=== PATIENT | male | born 1945 | race African-American/Black ===

== ENCOUNTER → 2016-04-14 | Outpatient (CLI) | payer MEDICARE ==
[2016-04-15 08:37] LABS: ABSOLUTE EOSINOPHILS # (AUTO) 0.3 10^3/uL (0.0-0.6); ABSOLUTE LYMPHOCYTES (AUTO) 1.5 10^3/uL (0.5-4.7); ABSOLUTE MONOCYTES (AUTO) 0.6 10^3/uL (0.1-1.4); ABSOLUTE NEUT (AUTO) 1.7 10^3/uL (1.7-8.2); BASOPHILS % (AUTO) 0.1 % (0-2); EOSINOPHILS % (AUTO) 7.9 % (0-6); HEMATOCRIT 38.3 % (37.9-51.0); HEMOGLOBIN 12.7 g/dL (13.5-17.0); HGB HCT DIFFERENCE -0.2; LYMPHOCYTES % (AUTO) 36.9 % (13-45); MEAN CORPUSCULAR HEMOGLOBIN 30.5 pg (27.0-33.4); MEAN CORPUSCULAR HGB CONC 33.2 g/dL (32.0-36.0); MEAN CORPUSCULAR VOLUME 92 fl (80-97); MONOCYTES % (AUTO) 14.1 % (3-13); RED BLOOD COUNT 4.17 10^6/uL (4.35-5.55); RED CELL DISTRIBUTION WIDTH 15.5 % (11.5-14.0)
[2016-04-15 09:07] LABS: ALANINE AMINOTRANSFERASE 55 U/L (21-72); ALBUMIN 4.6 g/dL (3.5-5.0); ALKALINE PHOSPHATASE 56 U/L (38-126); ANION GAP 16 (5-19); ASPARTATE AMINO TRANSFERASE 41 U/L (17-59); BILIRUBIN,TOTAL 0.6 mg/dL (0.2-1.3); BLOOD UREA NITROGEN 28 mg/dL (7-20); CALCIUM 10.7 mg/dL (8.4-10.2); CARBON DIOXIDE 22 mmol/L (22-30); CHLORIDE 109 mmol/L (98-107); CHOLESTEROL 125.88 mg/dL (0-200); CREATININE RESULT 1.56 mg/dL (0.52-1.25); Direct HDL 25 mg/dL (>40); GLUCOSE 86 mg/dL (75-110); POTASSIUM 4.1 mmol/L (3.6-5.0); SODIUM 146.6 mmol/L (137-145); TOTAL PROTEIN 7.8 g/dL (6.3-8.2); TRIGLYCERIDES 118 mg/dL (<150)
[2016-04-15 09:27] LABS: DIRECT LDL 67 mg/dL (<100)
== END ==
LOC: LAB 09:57
PROVIDERS: ATTEND Internal Medicine
DX: E11.9 Type 2 diabetes mellitus without complications (principal); I25.10 Atherosclerotic heart disease of native coronary artery without angina pectoris; I10 Essential (primary) hypertension; E78.5 Hyperlipidemia, unspecified
CPT/HCPCS: 36415; 80053; 80061; 83036; 85025

== ENCOUNTER 2016-11-03 08:35 | Emergency (ER) | payer OTHER, MEDICARE ==
[2016-11-03 09:04] LABS: APPEARANCE,URINE SLIGHTLY-CLOUDY; BILIRUBIN,URINE NEGATIVE (NEGATIVE); GLUCOSE, URINE NEGATIVE (NEGATIVE); KETONES,URINE NEGATIVE (NEGATIVE); LEUKOCYTE ESTERASE,URINE LARGE (NEGATIVE); NITRITE,URINE NEGATIVE (NEGATIVE); PROTEIN,URINE NEGATIVE (NEGATIVE); URINE SPECIFIC GRAVITY 1.008; UROBILINOGEN,URINE NEGATIVE mg/dL (<2.0)
--- NOTE | 2016-11-03 09:45 | RADIOLOGY REPORT (SQ) ---
EXAM DESCRIPTION: CHEST SINGLE VIEW COMPLETED DATE/TIME: 11/03/2016 9:38 am REASON FOR STUDY: sob COMPARISON: None. EXAM PARAMETERS: NUMBER OF VIEWS: One view. TECHNIQUE: Single frontal radiographic view of the chest acquired. RADIATION DOSE: NA LIMITATIONS: None. FINDINGS: LUNGS AND PLEURA: No opacities, masses or pneumothorax. No pleural effusion. MEDIASTINUM AND HILAR STRUCTURES: No masses. Contour normal. HEART AND VASCULAR STRUCTURES: No cardiomegaly. Old sternotomy and CABG BONES: Diffuse degenerative changes thoracic spine HARDWARE: None in the chest. OTHER: No other significant finding. IMPRESSION: NO ACUTE RADIOGRAPHIC FINDING IN THE CHEST. TECHNICAL DOCUMENTATION: JOB ID: [id number]
[2016-11-03 09:46] LABS: ABSOLUTE EOSINOPHILS # (AUTO) 0.1 10^3/uL (0.0-0.6); ABSOLUTE LYMPHOCYTES (AUTO) 0.7 10^3/uL (0.5-4.7); ABSOLUTE MONOCYTES (AUTO) 0.3 10^3/uL (0.1-1.4); ABSOLUTE NEUT (AUTO) 1.7 10^3/uL (1.7-8.2); BASOPHILS % (AUTO) 0.5 % (0-2); EOSINOPHILS % (AUTO) 4.8 % (0-6); HEMATOCRIT 31.9 % (37.9-51.0); HEMOGLOBIN 11.1 g/dL (13.5-17.0); HGB HCT DIFFERENCE 1.4; LYMPHOCYTES % (AUTO) 23.2 % (13-45); MEAN CORPUSCULAR HEMOGLOBIN 32.5 pg (27.0-33.4); MEAN CORPUSCULAR HGB CONC 34.9 g/dL (32.0-36.0); MEAN CORPUSCULAR VOLUME 93 fl (80-97); MONOCYTES % (AUTO) 10.5 % (3-13); RED BLOOD COUNT 3.42 10^6/uL (4.35-5.55); RED CELL DISTRIBUTION WIDTH 14.7 % (11.5-14.0); WHITE BLOOD COUNT 2.8 10^3/uL (4.0-10.5)
[2016-11-03 10:03] LABS: ALANINE AMINOTRANSFERASE 63 U/L (21-72); ALBUMIN 4.3 g/dL (3.5-5.0); ALKALINE PHOSPHATASE 49 U/L (38-126); ANION GAP 12 (5-19); ASPARTATE AMINO TRANSFERASE 42 U/L (17-59); BILIRUBIN,DIRECT 0.3 mg/dL (0.0-0.4); BILIRUBIN,TOTAL 0.7 mg/dL (0.2-1.3); BLOOD UREA NITROGEN 30 mg/dL (7-20); CALCIUM 10.4 mg/dL (8.4-10.2); CARBON DIOXIDE 20 mmol/L (22-30); CHLORIDE 105 mmol/L (98-107); CREATINE KINASE 277 U/L (55-170); CREATININE RESULT 1.44 mg/dL (0.52-1.25); GLUCOSE 210 mg/dL (75-110); POTASSIUM 4.4 mmol/L (3.6-5.0); SODIUM 136.8 mmol/L (137-145); TOTAL PROTEIN 7.6 g/dL (6.3-8.2)
[2016-11-03 10:12] LABS: CREATINE KINASE MB 3.14 ng/mL (<4.55)
[2016-11-03 10:18] LABS: TROPONIN I 0.074 ng/mL
[2016-11-03] MEDS ORDERED: CIPROFLOXACIN HCL 500 MG TABLET PO ONE (10:18)
--- NOTE | 2016-11-03 10:19 | ER Document Report ---
ED General - General Chief Complaint: Shortness Of Breath Stated Complaint: SHORT OF BREATH Time Seen by Provider: 11/03/16 08:54 Mode of Arrival: Ambulatory Information source: Patient Notes: 71-year-old male history of stent presents with complaints of shortness of breath. Patient denies any actual chest pain states that shortness of breath has been ongoing for 2 days TRAVEL OUTSIDE OF THE [place] IN LAST 30 DAYS: No - HPI Onset: Yesterday Onset/Duration: Sudden Quality of pain: No pain Severity: Mild Pain Level: Denies Associated symptoms: Shortness of breath Exacerbated by: Denies Relieved by: Denies Similar symptoms previously: Yes - Patient notes previous anxiety episodes similar to this Recently seen / treated by doctor: No - Related Data Allergies/Adverse Reactions: No Known Allergies Allergy (Verified 11/03/16 09:12) Past Medical History - Social History Smoking Status: Never Smoker Cigarette use (# per day): No Chew tobacco use (# tins/day): No Smoking Education Provided: No Family History: Reviewed & Not Pertinent Patient has suicidal ideation: No Patient has homicidal ideation: No Renal/ Medical History: Denies: Hx Peritoneal Dialysis Review of Systems - Review of Systems Notes: REVIEW OF SYSTEMS: CONSTITUTIONAL : Denies fever, chills, or sweats. Denies recent illness. EENT: Denies eye, ear, throat, or mouth pain or symptoms. Denies nasal or sinus congestion or discharge. Denies throat, tongue, or mouth swelling or difficulty swallowing. CARDIOVASCULAR: Denies chest pain. Denies palpitations or racing or irregular heart beat. Denies ankle edema. RESPIRATORY: Admits to shortness of breath GASTROINTESTINAL: Denies abdominal pain or distention. Denies nausea, vomiting , or diarrhea. Denies blood in vomitus, stools, or per rectum. Denies black, tarry stools. Denies constipation. GENITOURINARY: Denies difficulty urinating, painful urination, burning, frequency, blood in urine, or discharge. MUSCULOSKELETAL: Denies back or neck pain or stiffness. Denies joint pain or swelling. SKIN: Denies rash, lesions or sores. HEMATOLOGIC : Denies easy bruising or bleeding. LYMPHATIC: Denies swollen, enlarged glands. NEUROLOGICAL: Denies confusion or altered mental status. Denies passing out or loss of consciousness. Denies dizziness or lightheadedness. Denies headache. Denies weakness or paralysis or loss of use of either side. Denies problems with gait or speech. Denies sensory loss, numbness, or tingling. Denies seizures. PSYCHIATRIC: Denies anxiety or stress. Denies depression, suicidal ideation, or homicidal ideation. ALL OTHER SYSTEMS REVIEWED AND NEGATIVE. Dictation was performed using [employer] voice recognition software PHYSICAL EXAMINATION: GENERAL: Well-appearing, well-nourished and in no acute distress. HEAD: Atraumatic, normocephalic. EYES: Pupils equal round and reactive to light, extraocular movements intact, sclera anicteric, conjunctiva are normal. ENT: Nares patent, oropharynx clear without exudates. Moist mucous membranes. NECK: Normal range of motion, supple without lymphadenopathy LUNGS: Breath sounds clear to auscultation bilaterally and equal. No wheezes rales or rhonchi. HEART: Regular rate and rhythm without murmurs ABDOMEN: Soft, nontender, nondistended abdomen. No guarding, no rebound. No masses appreciated. Musculoskeletal: Normal range of motion, no pitting or edema. No cyanosis. NEUROLOGICAL: Cranial nerves grossly intact. Normal speech, normal gait. Normal sensory, motor exams PSYCH: Normal mood, normal affect. SKIN: Warm, Dry, normal turgor, no rashes or lesions noted. Physical Exam - Vital signs Vitals: Temp Pulse Resp BP Pulse Ox 97.6 F 76 22 H 170/83 H 97 11/03/16 08:36 11/03/16 08:36 11/03/16 08:36 11/03/16 08:36 11/03/16 08:36 Course - Re-evaluation Re-evalutation: 11/03/16 12:58 Physical examination noted absolutely no abnormality, patient's lab work does note mild renal insufficiency as well as slightly elevated troponin. This may be related to the creatinine however a second set of cardiac enzymes have been ordered. I do not expect this to be cardiac in nature but the patient does have cardiac history. His shortness of breath has been ongoing now for 2 days and elevated troponins would be expected at this point 11/03/16 15:02 Second set of cardiac enzymes note no change, therefore I do believe this is secondary to the patient's kidney function. He will be discharged home at this time to follow with his primary care physician and aesthetics instructor for reevaluation. Otherwise patient is in no distress denies any complaints After performing a Medical Screening Examination, I estimate there is LOW risk for RUPTURED ESOPHAGUS, PNEUMOTHORAX, PULMONARY EMBOLISM, ACUTE CORONARY SYNDROME, OR THORACIC AORTIC DISSECTION, thus I consider the discharge disposition reasonable. I have reevaluated this patient multiple times and no significant life threatening changes are noted. The patient and I have discussed the diagnosis and risks, and we agree with discharging home with close follow-up. We also discussed returning to the Emergency Department immediately if new or worsening symptoms occur. We have discussed the symptoms which are most concerning (e.g., bloody sputum, worsening pain or shortness of breath) that necessitate immediate return. - Vital Signs Vital signs: Temp Pulse Resp BP Pulse Ox 97.9 F 76 10 L 147/92 H 100 11/03/16 12:18 11/03/16 08:36 11/03/16 12:01 11/03/16 12:01 11/03/16 12:01 - Laboratory Result Diagrams: 11/03/16 09:25 11/03/16 09:25 Laboratory results interpreted by me: 11/03/16 11/03/16 11/03/16 08:42 09:25 09:25 WBC 2.8 L RBC 3.42 L Hgb 11.1 L Hct 31.9 L RDW 14.7 H Sodium 136.8 L Carbon Dioxide 20 L BUN 30 H Creatinine 1.44 H Est GFR ( Amer) 58 L Est GFR (Non-Af Amer) 48 L Glucose 210 H Calcium 10.4 H Creatine Kinase 277 H Ur Leukocyte Esterase LARGE H Urine Ascorbic Acid 40 H - Diagnostic Test Radiology reviewed: Image reviewed, Reports reviewed - EKG Interpretation by Me EKG shows normal: Sinus rhythm, [place], Intervals, QRS Complexes Discharge - Discharge Clinical Impression: SOB (shortness of breath) HTN (hypertension) Qualifiers: Hypertension type: essential hypertension Qualified Code(s): I10 - Essential ( primary) hypertension CKD (chronic kidney disease) Qualifiers: Chronic kidney disease stage: stage 1 Qualified Code(s): N18.1 - Chronic kidney disease, stage 1 Condition: Stable Disposition: HOME, SELF-CARE Instructions: Dyspnea, Nonspecific ([facility]) Referrals: FLOR STARR MD [Primary Care Provider] - Follow up tomorrow
[2016-11-03] MEDS ORDERED: ASPIRIN 325 MG TABLET PO ONE (12:58)
--- NOTE | 2016-11-03 13:24 | EKG REPORT ---
SEVERITY:- BORDERLINE ECG - SINUS RHYTHM LEFT AXIS DEVIATION BORDERLINE ST ELEVATION, ANTERIOR LEADS : Confirmed by: Gudelia De La Rosa 03-Nov-2016 13:23:44
[2016-11-03 15:04] VITALS: BP 119/75
== END 2016-11-03 15:25 | disposition home or self-care (01) ==
LOC: ER 08:35
DX: R06.02 Shortness of breath (principal); R74.8 Abnormal levels of other serum enzymes; I12.9 Hypertensive chronic kidney disease with stage 1 through stage 4 chronic kidney disease, or unspecified chronic kidney disease; N18.1 Chronic kidney disease, stage 1
CPT/HCPCS: 36415; 71010; 80053; 81001; 82550; 82553; 83880; 84484; 85025; 87040; 93005; 93010; 99285

== ENCOUNTER 2017-02-24 20:11 | Emergency (ER) | payer OTHER, MEDICARE ==
[2017-02-24 21:55] LABS: APPEARANCE,URINE SLIGHTLY-CLOUDY; BILIRUBIN,URINE NEGATIVE (NEGATIVE); GLUCOSE, URINE NEGATIVE (NEGATIVE); KETONES,URINE NEGATIVE (NEGATIVE); LEUKOCYTE ESTERASE,URINE SMALL (NEGATIVE); NITRITE,URINE NEGATIVE (NEGATIVE); PROTEIN,URINE NEGATIVE (NEGATIVE); URINE SPECIFIC GRAVITY 1.011; UROBILINOGEN,URINE NEGATIVE mg/dL (<2.0)
[2017-02-24 21:59] LABS: RBC,URINE 30-50 /HPF; WHITE BLOOD CELL CASTS, URINE 0-1 /LPF
[2017-02-24 22:30] LABS: ABSOLUTE EOSINOPHILS # (AUTO) 0.2 10^3/uL (0.0-0.6); ABSOLUTE LYMPHOCYTES (AUTO) 1.4 10^3/uL (0.5-4.7); ABSOLUTE MONOCYTES (AUTO) 0.7 10^3/uL (0.1-1.4); ABSOLUTE NEUT (AUTO) 3.2 10^3/uL (1.7-8.2); BASOPHILS % (AUTO) 0.4 % (0-2); EOSINOPHILS % (AUTO) 4.4 % (0-6); HEMOGLOBIN 12.2 g/dL (13.5-17.0); HGB HCT DIFFERENCE 0.6; LYMPHOCYTES % (AUTO) 25.2 % (13-45); MEAN CORPUSCULAR HGB CONC 33.8 g/dL (32.0-36.0); MEAN CORPUSCULAR VOLUME 92 fl (80-97); MONOCYTES % (AUTO) 12.6 % (3-13); RED BLOOD COUNT 3.93 10^6/uL (4.35-5.55); RED CELL DISTRIBUTION WIDTH 14.8 % (11.5-14.0); SEGMENTED NEUTROPHILS % (AUTO) 57.4 % (42-78); WHITE BLOOD COUNT 5.6 10^3/uL (4.0-10.5)
[2017-02-24 22:46] LABS: ALANINE AMINOTRANSFERASE 89 U/L (21-72); ALBUMIN 4.6 g/dL (3.5-5.0); ALKALINE PHOSPHATASE 58 U/L (38-126); ANION GAP 17 (5-19); ASPARTATE AMINO TRANSFERASE 45 U/L (17-59); BILIRUBIN,DIRECT 0.3 mg/dL (0.0-0.4); BILIRUBIN,TOTAL 0.5 mg/dL (0.2-1.3); BLOOD UREA NITROGEN 51 mg/dL (7-20); CALCIUM 10.4 mg/dL (8.4-10.2); CARBON DIOXIDE 19 mmol/L (22-30); CHLORIDE 108 mmol/L (98-107); GLUCOSE 145 mg/dL (75-110); POTASSIUM 4.3 mmol/L (3.6-5.0); SODIUM 143.8 mmol/L (137-145); TOTAL PROTEIN 7.8 g/dL (6.3-8.2)
--- NOTE | 2017-02-24 23:52 | RADIOLOGY REPORT (SQ) ---
EXAM DESCRIPTION: CT LTD RENAL STONE PROTOCOL ON COMPLETED DATE/TIME: 02/24/2017 11:35 pm REASON FOR STUDY: right flank pain COMPARISON: None. TECHNIQUE: CT scan of the abdomen and pelvis performed without intravenous or oral contrast. Images reviewed with lung, soft tissue, and bone windows. Reconstructed coronal and sagittal MPR images revi ewed. All images stored on PACS. All CT scanners at this facility use dose modulation, iterative reconstruction, and/or weight based d osing when appropriate to reduce radiation dose to as low as reasonably achievable (ALARA). [facility]: Dose Right [facility]: CareDose [facility]: Dose Right [facility]: Teradose 4D [facility]: SocialDeck RADIATION DOSE: 17.5mGy. LIMITATIONS: None. FINDINGS: LOWER CHEST: Old sternotomy for CABG. No nodules or infiltrates. NON-CONTRASTED LIVER, SPLEEN, ADRENALS: Evaluation limited by lack of IV contrast. No identified sign ificant masses. PANCREAS: No masses. No peripancreatic inflammatory changes. GALLBLADDER: No identified stones by CT criteria. No inflammatory changes to suggest cholecystitis. RIGHT KIDNEY AND URETER: No suspicious masses. Assessment limited by lack of IV contrast. Arterial vascular calcifications. No right collecting system stones. No hydronephrosis or hydroureter. LEFT KIDNEY AND URETER: No suspicious masses. Assessment limited by lack of IV contrast. Arterial v ascular calcifications. No left collecting system stones. No hydronephrosis or hydroureter. AORTA AND RETROPERITONEUM: Infrarenal abdominal aorta measures 3.6 cm in diameter. No retroperitoneal masses or adenopathy. BOWEL AND PERITONEAL CAVITY: No obvious masses or inflammatory changes. No free fluid. Scattered col onic diverticuli. No CT signs of acute diverticulitis. APPENDIX: Normal. PELVIS, BLADDER, AND ABDOMINAL WALL:No abnormal masses. No free fluid. Bladder normal. BONES: Old L4 lumbar laminectomy. OTHER: No other significant finding. IMPRESSION: No CT signs of obstructive urinary calculi. No hydronephrosis or hydroureter. Ectatic infrarenal abdominal aorta, 3.6 cm in diameter Scattered colonic diverticuli without CT signs of acute diverticulitis. COMMENT: Quality ID # [id number]: Final reports with documentation of one or more dose reduction techniques (e.g., Automated exposure control, adjustment of the mA and/or kV according to patient size, use of iterative reconstruction technique) TECHNICAL DOCUMENTATION: JOB ID: [id number] [employer]- All Rights Reserved
--- NOTE | 2017-02-25 02:05 | ER Document Report ---
ED General - General Chief Complaint: Urinary Problem Stated Complaint: BLOOD IN URINE Time Seen by Provider: 02/24/17 23:04 Mode of Arrival: Ambulatory Information source: Patient Notes: This is a 71-year-old man with a history of diabetes, chronic kidney disease, gout who presents to the emergency room with hematuria for 1 day. Patient does state that he had right flank pain yesterday. He states that the flank pain is gone but now has burning on urination. TRAVEL OUTSIDE OF THE [place] IN LAST 30 DAYS: No - HPI Onset: Yesterday Onset/Duration: Gradual Quality of pain: No pain Severity: None Pain Level: Denies Associated symptoms: denies: Chills, Fever, Shortness of breath Exacerbated by: Denies Relieved by: Denies Similar symptoms previously: No Recently seen / treated by doctor: No - Related Data Allergies/Adverse Reactions: No Known Allergies Allergy (Verified 11/03/16 09:12) Past Medical History - General Information source: Patient - Social History Smoking Status: Unknown if Ever Smoked Cigarette use (# per day): No Chew tobacco use (# tins/day): No Frequency of alcohol use: None Drug Abuse: None Lives with: Alone Family History: Reviewed & Not Pertinent Patient has suicidal ideation: No Patient has homicidal ideation: No - Past Medical History Cardiac Medical History: Reports: Hx Heart Attack - Pt had bypass surgery about 25 years ago 5 vessels. Pt also had 2 stints, Hx Hypercholesterolemia - Takes medication for high cholesterol, Hx Hypertension - Takes medication currently Renal/ Medical History: Denies: Hx Peritoneal Dialysis GI Medical History: Reports: Hx Gastroesophageal Reflux Disease - takes gas-ex regular for reflux Past Surgical History: Reports: Hx Open Heart Surgery - 25 years agoComment Only : Hx Cardiac Surgery - 2 stints last less than 2 years ago Review of Systems - Review of Systems Constitutional: denies: Chills, Fever EENT: No symptoms reported Cardiovascular: No symptoms reported Respiratory: No symptoms reported Gastrointestinal: No symptoms reported Genitourinary: See HPI Male Genitourinary: See HPI Musculoskeletal: No symptoms reported Skin: No symptoms reported Hematologic/Lymphatic: No symptoms reported Neurological/Psychological: No symptoms reported Physical Exam - Vital signs Vitals: Temp Pulse Resp BP Pulse Ox 97.5 F 66 20 163/81 H 100 02/24/17 20:21 02/24/17 20:21 02/24/17 20:21 02/24/17 20:21 02/24/17 20:21 Notes: Physical exam: GENERAL: 71-year-old man, alert and oriented 3, no acute distress HEAD: Atraumatic, normocephalic. EYES: Pupils equal round and reactive to light, extraocular movements intact, sclera anicteric, conjunctiva are normal. ENT: TMs normal, nares patent, oropharynx clear without exudates. Moist mucous membranes. NECK: Normal range of motion, supple without obvious mass or JVD. LUNGS: Breath sounds clear to auscultation bilaterally and equal. No wheezes rales or rhonchi. HEART: Regular rate and rhythm without murmurs, rubs or gallops. ABDOMEN: Soft, normoactive bowel sounds. No tenderness to palpation. No guarding, no rebound. No masses appreciated. Rectal exam: Prostate nontender, no masses, feels soft. Penis: Urethra is intact, no lesions, no palpable masses on the shaft EXTREMITIES: Normal range of motion, no pitting or edema. No clubbing or cyanosis. NEUROLOGICAL: Cranial nerves II through XII grossly intact. Normal speech, moving all extremities. PSYCH: Normal mood, normal affect. SKIN: Warm, Dry, normal turgor, no rashes or lesions noted. Course - Vital Signs Vital signs: Temp Pulse Resp BP Pulse Ox 97.9 F 56 L 16 158/76 H 99 02/25/17 02:17 02/25/17 02:17 02/25/17 02:17 02/25/17 02:17 02/25/17 02:17 - Laboratory Result Diagrams: 02/24/17 22:00 02/24/17 22:00 Laboratory results interpreted by me: 02/24/17 02/24/17 02/24/17 20:37 22:00 22:00 RBC 3.93 L Hgb 12.2 L Hct 36.0 L RDW 14.8 H Chloride 108 H Carbon Dioxide 19 L BUN 51 H Creatinine 1.70 H Est GFR ( Amer) 48 L Est GFR (Non-Af Amer) 40 L Glucose 145 H Calcium 10.4 H ALT 89 H Urine Blood LARGE H Ur Leukocyte Esterase SMALL H Urine Ascorbic Acid 40 H - Diagnostic Test Radiology reviewed: Image reviewed, Reports reviewed - CT of the abdomen shows no kidney stones, obstructive uropathy Discharge - Discharge Clinical Impression: Hematuria, UTI Condition: Stable Disposition: HOME, SELF-CARE Additional Instructions: Recommendations: Want you to take the antibiotics as prescribed. We will get a treat this like a UTI. But I think it is important that you follow-up with a urologist because you may need a cystoscope which is a direct scope through the penis of the bladder. You can follow-up with a urologist at the [facility]. Continue your current medicines. Bring a copy of today's labs and CT report with you when you go to see the urologist. Prescriptions: Ciprofloxacin HCl [Cipro 500 mg Tablet] 500 mg PO BID #20 tablet
[2017-02-25 02:18] VITALS: BP 158/76
== END 2017-02-25 02:18 | disposition home or self-care (01) ==
LOC: ER 20:11
DX: N39.0 Urinary tract infection, site not specified (principal); R31.9 Hematuria, unspecified; E78.00 Pure hypercholesterolemia, unspecified; E11.22 Type 2 diabetes mellitus with diabetic chronic kidney disease; I12.9 Hypertensive chronic kidney disease with stage 1 through stage 4 chronic kidney disease, or unspecified chronic kidney disease; N18.9 Chronic kidney disease, unspecified; I25.2 Old myocardial infarction; Z95.1 Presence of aortocoronary bypass graft
CPT/HCPCS: 36415; 76380; 80053; 81001; 85025; 99284

== ENCOUNTER → 2018-06-21 | Outpatient (CLI) | payer OTHER, MEDICARE ==
[2018-06-21 08:49] LABS: ALANINE AMINOTRANSFERASE 115 U/L (21-72); ALBUMIN 4.3 g/dL (3.5-5.0); ALKALINE PHOSPHATASE 53 U/L (38-126); ASPARTATE AMINO TRANSFERASE 69 U/L (17-59); BILIRUBIN,DIRECT 0.3 mg/dL (0.0-0.4); BILIRUBIN,TOTAL 0.7 mg/dL (0.2-1.3); CHOLESTEROL 105.63 mg/dL (0-200); TOTAL PROTEIN 7.5 g/dL (6.3-8.2); TRIGLYCERIDES 174 mg/dL (<150)
[2018-06-21 09:00] LABS: DIRECT LDL 48 mg/dL (<100)
[2018-06-21 09:02] LABS: VLDL CHOLESTEROL 34.8 mg/dL (10-31)
== END ==
LOC: OD 07:40
PROVIDERS: ATTEND Specialist
DX: I25.10 Atherosclerotic heart disease of native coronary artery without angina pectoris (principal); Z95.1 Presence of aortocoronary bypass graft; Z98.61 Coronary angioplasty status; E78.49 Other hyperlipidemia; I10 Essential (primary) hypertension; I34.0 Nonrheumatic mitral (valve) insufficiency; D50.8 Other iron deficiency anemias; E08.9 Diabetes mellitus due to underlying condition without complications; Z79.899 Other long term (current) drug therapy
CPT/HCPCS: 36415; 80061; 80076; 83036

== ENCOUNTER → 2018-07-30 | Outpatient (CLI) | payer MEDICARE ==
[2018-07-30 09:01] LABS: ALANINE AMINOTRANSFERASE 107 U/L (21-72); ALBUMIN 4.3 g/dL (3.5-5.0); ALKALINE PHOSPHATASE 64 U/L (38-126); ASPARTATE AMINO TRANSFERASE 61 U/L (17-59); BILIRUBIN,DIRECT 0.3 mg/dL (0.0-0.4); BILIRUBIN,TOTAL 0.7 mg/dL (0.2-1.3); TOTAL PROTEIN 7.4 g/dL (6.3-8.2)
== END ==
LOC: OD 07:58
PROVIDERS: ATTEND Internal Medicine
DX: R94.5 Abnormal results of liver function studies (principal)
CPT/HCPCS: 36415; 80076

== ENCOUNTER → 2018-08-03 | Outpatient (CLI) | payer MEDICARE ==
--- NOTE | 2018-08-03 10:52 | RADIOLOGY REPORT (SQ) ---
EXAM DESCRIPTION: U/S ABDOMEN LIMITED W/O DOP COMPLETED DATE/TIME: 08/03/2018 10:26 am REASON FOR STUDY: ABN LFT (R94.5), BACK (K75.81), FATTY LIVER (K76.0) R94.5 ABNORMAL RESULTS OF ROMAN ER FUNCTION STUDIES COMPARISON: CT abdomen pelvis 02/24/2017 TECHNIQUE: Dynamic and static grayscale images acquired of the abdomen and recorded on PACS. Additio nal selected color Doppler and spectral images recorded. LIMITATIONS: Large patient, midline bowel gas FINDINGS: PANCREAS: Midline pancreas unremarkable LIVER: Normal size, diffuse increased echogenicity from fatty infiltration or diffuse hepatocellular disease. No focal masses. No biliary ductal dilatation LIVER VASCULATURE: Normal directional flow of the main portal vein and hepatic veins. GALLBLADDER: Multiple stones. No gallbladder wall thickening or pericholecystic fluid. ULTRASOUND-DETECTED GUERRERO'S SIGN: Negative. INTRAHEPATIC DUCTS AND COMMON DUCT: CBD and intrahepatic ducts normal caliber. No filling defects. INFERIOR VENA CAVA: Normal flow. AORTA: Infrarenal abdominal aorta measures 3.6 cm in greatest AP diameter, similar compared to 017 CT abdomen pelvis RIGHT KIDNEY: Normal size. Normal echogenicity. No solid or suspicious masses. No hydronephrosis. No calcifications. PERITONEAL AND RIGHT PLEURAL SPACE: No ascites or effusions. OTHER: No other significant findings. IMPRESSION: Gallstones Stable infrarenal abdominal aorta 3.6 cm AP diameter Echogenic liver from fatty infiltration or diffuse hepatocellular disease COMMENT: AAA Size: 3.6 cm follow-up Recommendation 3.5-3.9 cm Every 12 months ultrasound follow -up *Based upon the Society for Vascular Surgery Guidelines: J Vasc Surg. 2009 Dec;50(4 Suppl):S2-49 *For aortas of maximum diameter of 2.6-2.9 cm meeting the criteria for AAA (?1.5 x proximal normal se gment) TECHNICAL DOCUMENTATION: JOB ID: [id number]- All Rights Reserved Reading location - IP/workstation name: [email or web address]
== END ==
LOC: RAD 09:41
PROVIDERS: ATTEND Internal Medicine
DX: R94.5 Abnormal results of liver function studies (principal); K75.81 Nonalcoholic steatohepatitis (NASH)
CPT/HCPCS: 76705

== ENCOUNTER → 2018-11-01 | Outpatient (CLI) | payer MEDICARE ==
[2018-11-01 12:09] LABS: ALBUMIN 4.5 g/dL (3.5-5.0); ALKALINE PHOSPHATASE 53 U/L (38-126); ASPARTATE AMINO TRANSFERASE 48 U/L (17-59); BILIRUBIN,DIRECT 0.3 mg/dL (0.0-0.4); BILIRUBIN,TOTAL 0.5 mg/dL (0.2-1.3); TOTAL PROTEIN 7.6 g/dL (6.3-8.2)
== END ==
LOC: OD 10:40
PROVIDERS: ATTEND Internal Medicine Gastroenterology
DX: R94.5 Abnormal results of liver function studies (principal)
CPT/HCPCS: 36415; 80076

== ENCOUNTER → 2018-11-08 | Outpatient (CLI) | payer MEDICARE ==
[2018-11-10 11:36] LABS: ANTICHROMATIN AB 1.9 AI (0.0-0.9); CENTROMERE B AB <0.2 AI (0.0-0.9); JO-1 ANTIBODY (ANACOMP) <0.2 AI (0.0-0.9); SJOGREN'S ANTI-SS-B AB 0.2 AI (0.0-0.9); SJOGREN'S SS-A ANTIBODY <0.2 AI (0.0-0.9)
[2018-11-10 16:26] LABS: DNA DOUBLE STRAND ANTIBODY ANA 18 IU/mL (0-9)
== END ==
LOC: OD 16:55
PROVIDERS: ATTEND Internal Medicine Gastroenterology
DX: R94.5 Abnormal results of liver function studies (principal)
CPT/HCPCS: 36415; 86038; 86225; 86235

== ENCOUNTER 2019-02-11 18:03 | Emergency (ER) | payer MEDICARE, OTHER ==
[2019-02-11] MEDS ORDERED: ASPIRIN 81 MG TABLET, CHEWABLE PO ONE (18:31)
--- NOTE | 2019-02-11 18:32 | ER Document Report ---
ED Medical Screen (RME) - General Chief Complaint: Shortness Of Breath Stated Complaint: SHORTNESS OF BREATH Time Seen by Provider: 02/11/19 18:24 Primary Care Provider: NENO MODI MD [Primary Care Provider] - Follow up as needed Mode of Arrival: Ambulatory Information source: Patient Notes: This [id number]-year-old male with history of coronary bypass back surgery presents emergency department with reports that his heart was really going fast. He reports this happened in the past he is jumped in the shower taking easy and it slowed down. This time he was too scared to take a shower so he jumped in the truck and came here. Reports his heart rate is just now slowed down. Reports he gets very short of breath with some chest pain. Denies fever vomiting reports some diarrhea. Reports he usually takes 81 mg aspirin a day but has not taken it today. Also complains of left flank pain. Reports he has trouble urinating but his doctor gave him something for that. Respiratory rate even unlabored I have greeted and performed a rapid initial assessment of this patient. A comprehensive ED assessment and evaluation of the patient, analysis of test r esults and completion of the medical decision making process will be conducted by additional ED providers. Dictation of this chart was performed using voice recognition software; therefore, there may be some unintended grammatical errors. TRAVEL OUTSIDE OF THE [place] IN LAST 30 DAYS: No - Related Data Allergies/Adverse Reactions: No Known Allergies Allergy (Verified 11/03/16 09:12) Past Medical History - Social History Frequency of alcohol use: None Drug Abuse: None - Past Medical History Cardiac Medical History: Reports: Hx Heart Attack - Pt had bypass surgery about 25 years ago 5 vessels. Pt also had 2 stints, Hx Hypercholesterolemia - Takes medication for high cholesterol, Hx Hypertension - Takes medication currently Renal/ Medical History: Denies: Hx Peritoneal Dialysis GI Medical History: Reports: Hx Gastroesophageal Reflux Disease - takes gas-ex regular for reflux Past Surgical History: Reports: Hx Open Heart Surgery - 25 years agoComment Only: Hx Cardiac Surgery - 2 stints last less than 2 years ago Physical Exam - Vital signs Vitals: Temp Pulse BP Pulse Ox 97.4 F 121 H 174/78 H 100 02/11/19 18:10 02/11/19 18:10 02/11/19 18:10 02/11/19 18:10 Course - Vital Signs Vital signs: Temp Pulse Resp BP Pulse Ox 97.4 F 88 174/78 H 100 02/11/19 18:10 02/11/19 18:22 02/11/19 18:10 02/11/19 18:22 Doctor's Discharge - Discharge Referrals: NENO MODI MD [Primary Care Provider] - Follow up as needed
--- NOTE | 2019-02-11 19:04 | RADIOLOGY REPORT (SQ) ---
EXAM DESCRIPTION: CHEST 2 VIEWS COMPLETED DATE/TIME: 02/11/2019 6:47 pm REASON FOR STUDY: SOB COMPARISON: 04/25/2008 EXAM PARAMETERS: NUMBER OF VIEWS: two views TECHNIQUE: Digital Frontal and Lateral radiographic views of the chest acquired. RADIATION DOSE: NA LIMITATIONS: none FINDINGS: LUNGS AND PLEURA: No infiltrate or effusion. There is 11 mm nodule in the mid right lung. This is not present on the earlier study. MEDIASTINUM AND HILAR STRUCTURES: No masses or contour abnormalities. HEART AND VASCULAR STRUCTURES: Heart normal size. No evidence for failure. BONES: No acute findings. HARDWARE: None in the chest. OTHER: No other significant finding. IMPRESSION: 11 mm right pulmonary nodule. Recommend CT. TECHNICAL DOCUMENTATION: JOB ID: [id number] [employer]- All Rights Reserved Reading location - IP/workstation name: [email or web address]
[2019-02-11 19:19] LABS: ABSOLUTE EOSINOPHILS # (AUTO) 0.3 10^3/uL (0.0-0.6); ABSOLUTE MONOCYTES (AUTO) 0.7 10^3/uL (0.1-1.4); HEMOGLOBIN 11.9 g/dL (13.5-17.0); TOTAL CELLS COUNTED % (AUTO) 100 %
[2019-02-11 19:27] LABS: ABSOLUTE LYMPHOCYTES (AUTO) 2.1 10^3/uL (0.5-4.7); ABSOLUTE NEUT (AUTO) 2.1 10^3/uL (1.7-8.2); BASOPHILS % (AUTO) 0.3 % (0-2); EOSINOPHILS % (AUTO) 5.9 % (0-6); HEMATOCRIT 34.6 % (37.9-51.0); LYMPHOCYTES % (AUTO) 40.1 % (13-45); MEAN CORPUSCULAR HEMOGLOBIN 31.6 pg (27.0-33.4); MEAN CORPUSCULAR HGB CONC 34.2 g/dL (32.0-36.0); MEAN CORPUSCULAR VOLUME 92 fl (80-97); MONOCYTES % (AUTO) 13.1 % (3-13); PLATELET COUNT 173 10^3/uL (150-450); RED BLOOD COUNT 3.75 10^6/uL (4.35-5.55); RED CELL DISTRIBUTION WIDTH 14.6 % (11.5-14.0); SEGMENTED NEUTROPHILS % (AUTO) 40.6 % (42-78); WHITE BLOOD COUNT 5.3 10^3/uL (4.0-10.5)
[2019-02-11 19:29] LABS: APPEARANCE,URINE SLIGHTLY-CLOUDY; BILIRUBIN,URINE NEGATIVE (NEGATIVE); COLOR,URINE YELLOW; GLUCOSE, URINE NEGATIVE (NEGATIVE); KETONES,URINE NEGATIVE (NEGATIVE); LEUKOCYTE ESTERASE,URINE LARGE (NEGATIVE); NITRITE,URINE POSITIVE (NEGATIVE); PROTEIN,URINE 30 mg/dL (NEGATIVE); URINE SPECIFIC GRAVITY 1.016; UROBILINOGEN,URINE NEGATIVE mg/dL (<2.0)
[2019-02-11 19:40] LABS: ALBUMIN 4.6 g/dL (3.5-5.0); ALKALINE PHOSPHATASE 56 U/L (38-126); ANION GAP 13 (5-19); ASPARTATE AMINO TRANSFERASE 68 U/L (17-59); BILIRUBIN,DIRECT 0.1 mg/dL (0.0-0.4); BILIRUBIN,TOTAL 0.6 mg/dL (0.2-1.3); BLOOD UREA NITROGEN 25 mg/dL (7-20); CALCIUM 11.1 mg/dL (8.4-10.2); CARBON DIOXIDE 24 mmol/L (22-30); CHLORIDE 107 mmol/L (98-107); GLUCOSE 153 mg/dL (75-110); POTASSIUM 3.8 mmol/L (3.6-5.0); TOTAL PROTEIN 8.3 g/dL (6.3-8.2)
--- NOTE | 2019-02-11 22:28 | ER Document Report ---
ED Respiratory Problem - General Chief Complaint: Shortness Of Breath Stated Complaint: SHORTNESS OF BREATH Time Seen by Provider: 02/11/19 18:24 Primary Care Provider: GRADY MARIA MD [ACTIVE STAFF] - Follow up as needed Mode of Arrival: Ambulatory Information source: Patient Notes: This [id number]-year-old male with history of coronary bypass back surgery presents emergency department with reports that his heart was really going fast. He reports this happened in the past he is jumped in the shower taking easy and it slowed down. This time he was too scared to take a shower so he jumped in the truck and came here. Reports his heart rate is just now slowed down. Reports he gets very short of breath with some chest pain. Denies fever vomiting reports some diarrhea. Reports he usually takes 81 mg aspirin a day but has not taken it today. Also complains of left flank pain. Reports he has trouble urinating but his doctor gave him something for that. Respiratory rate even unlabored TRAVEL OUTSIDE OF THE [place] IN LAST 30 DAYS: No - Related Data Allergies/Adverse Reactions: No Known Allergies Allergy (Verified 11/03/16 09:12) Past Medical History - General Information source: Patient - Social History Smoking Status: Never Smoker Frequency of alcohol use: None Drug Abuse: None Family History: Reviewed & Not Pertinent Patient has suicidal ideation: No Patient has homicidal ideation: No - Past Medical History Cardiac Medical History: Reports: Hx Heart Attack - Pt had bypass surgery about 25 years ago 5 vessels. Pt also had 2 stints, Hx Hypercholesterolemia - Takes medication for high cholesterol, Hx Hypertension - Takes medication currently Renal/ Medical History: Denies: Hx Peritoneal Dialysis GI Medical History: Reports: Hx Gastroesophageal Reflux Disease - takes gas-ex regular for reflux Past Surgical History: Reports: Hx Open Heart Surgery - 25 years agoComment Only: Hx Cardiac Surgery - 2 stints last less than 2 years ago Review of Systems - Review of Systems -: Yes All other systems reviewed and negative - Unless mentioned in HPI. Physical Exam - Vital signs Vitals: Temp Pulse BP Pulse Ox 97.4 F 121 H 174/78 H 100 02/11/19 18:10 02/11/19 18:10 02/11/19 18:10 02/11/19 18:10 - Notes Notes: PHYSICAL EXAMINATION: GENERAL: Well-appearing, well-nourished and in no acute distress. HEAD: Atraumatic, normocephalic. EYES: Pupils equal round and reactive to light, extraocular movements intact, sclera anicteric, conjunctiva are normal. ENT: Nares patent, oropharynx clear without exudates. Moist mucous membranes. NECK: Normal range of motion, supple without lymphadenopathy LUNGS: Breath sounds clear to auscultation bilaterally and equal. No wheezes rales or rhonchi. HEART: Regular rate and rhythm without murmurs ABDOMEN: Soft, nontender, nondistended abdomen. No guarding, no rebound. No masses appreciated. Musculoskeletal: Normal range of motion, no pitting or edema. No cyanosis. NEUROLOGICAL: Cranial nerves grossly intact. Normal speech, normal gait. Normal sensory, motor exams PSYCH: Normal mood, normal affect. SKIN: Warm, Dry, normal turgor, no rashes or lesions noted. Course - Re-evaluation Re-evalutation: 02/11/19 23:55 Dr. Hewitt contacted. He agrees to see patient outpatient in his office at noon. Laboratory 02/11/19 02/11/19 02/11/19 18:50 18:50 18:50 WBC 5.3 RBC 3.75 L Hgb 11.9 L Hct 34.6 L MCV 92 MCH 31.6 MCHC 34.2 RDW 14.6 H Plt Count 173 Lymph % (Auto) 40.1 Dixon % (Auto) 13.1 H Eos % (Auto) 5.9 Baso % (Auto) 0.3 Absolute Neuts (auto) 2.1 Absolute Lymphs (auto) 2.1 Absolute Monos (auto) 0.7 Absolute Eos (auto) 0.3 Absolute Basos (auto) 0.0 Seg Neutrophils % 40.6 L Sodium 143.7 Potassium 3.8 Chloride 107 Carbon Dioxide 24 Anion Gap 13 BUN 25 H Creatinine 1.39 H Est GFR ( Amer) > 60 Est GFR (MDRD) Non-Af 50 L Glucose 153 H POC Glucose Calcium 11.1 H Total Bilirubin 0.6 Direct Bilirubin 0.1 Neonat Total Bilirubin Not Reportable Neonat Direct Bilirubin Not Reportable Neonat Indirect Bili Not Reportable AST 68 H ALT 102 Alkaline Phosphatase 56 Troponin I 0.020 Total Protein 8.3 H Albumin 4.6 Urine Color Urine Appearance Urine pH Ur Specific [place] Urine Protein Urine Glucose (UA) Urine Ketones Urine Blood Urine Nitrite Urine Bilirubin Urine Urobilinogen Ur Leukocyte Esterase Urine WBC (Auto) Urine RBC (Auto) U Hyaline Cast (Auto) Urine Bacteria (Auto) Urine WBC Clumps Urine Mucus (Auto) Urine Ascorbic Acid 02/11/19 02/11/19 02/12/19 18:50 21:34 01:20 WBC RBC Hgb Hct MCV MCH MCHC RDW Plt Count Lymph % (Auto) Dixon % (Auto) Eos % (Auto) Baso % (Auto) Absolute Neuts (auto) Absolute Lymphs (auto) Absolute Monos (auto) Absolute Eos (auto) Absolute Basos (auto) Seg Neutrophils % Sodium Potassium Chloride Carbon Dioxide Anion Gap BUN Creatinine Est GFR ( Amer) Est GFR (MDRD) Non-Af Glucose POC Glucose Calcium Total Bilirubin Direct Bilirubin Neonat Total Bilirubin Neonat Direct Bilirubin Neonat Indirect Bili AST ALT Alkaline Phosphatase Troponin I 0.075 0.092 Total Protein Albumin Urine Color YELLOW Urine Appearance SLIGHTLY-CLOUDY Urine pH 5.0 Ur Specific [place] 1.016 Urine Protein 30 H Urine Glucose (UA) NEGATIVE Urine Ketones NEGATIVE Urine Blood NEGATIVE Urine Nitrite POSITIVE H Urine Bilirubin NEGATIVE Urine Urobilinogen NEGATIVE Ur Leukocyte Esterase LARGE H Urine WBC (Auto) 111 Urine RBC (Auto) 4 U Hyaline Cast (Auto) 3 Urine Bacteria (Auto) 3+ Urine WBC Clumps FEW Urine Mucus (Auto) RARE Urine Ascorbic Acid NEGATIVE 02/12/19 01:39 WBC RBC Hgb Hct MCV MCH MCHC RDW Plt Count Lymph % (Auto) Dixon % (Auto) Eos % (Auto) Baso % (Auto) Absolute Neuts (auto) Absolute Lymphs (auto) Absolute Monos (auto) Absolute Eos (auto) Absolute Basos (auto) Seg Neutrophils % Sodium Potassium Chloride Carbon Dioxide Anion Gap BUN Creatinine Est GFR ( Amer) Est GFR (MDRD) Non-Af Glucose POC Glucose 127 H Calcium Total Bilirubin Direct Bilirubin Neonat Total Bilirubin Neonat Direct Bilirubin Neonat Indirect Bili AST ALT Alkaline Phosphatase Troponin I Total Protein Albumin Urine Color Urine Appearance Urine pH Ur Specific [place] Urine Protein Urine Glucose (UA) Urine Ketones Urine Blood Urine Nitrite Urine Bilirubin Urine Urobilinogen Ur Leukocyte Esterase Urine WBC (Auto) Urine RBC (Auto) U Hyaline Cast (Auto) Urine Bacteria (Auto) Urine WBC Clumps Urine Mucus (Auto) Urine Ascorbic Acid Chest X-Ray 02/11/19 18:30 IMPRESSION: 11 mm right pulmonary nodule. Recommend CT. Chest CT 02/11/19 22:22 IMPRESSION: 14.0 mm solid pulmonary nodule. Consider a non-contrast Chest CT at 3 months, a PET/CT, or tissue sampling. These guidelines do not apply to immunocompromised patients and patients with cancer. Follow up in patients with significant comorbidities as clinically warranted. For lung cancer screening, adhere to Lung-RADS guidelines. Reference: Radiology. 2017; 284(1):228-43. Work-up was discussed with patient. Patient has had a chest x-ray that showed an incidental finding of an 11 mm right pulmonary nodule. He was sent for CT which actually shows that the pulmonary nodule is about 14 cm. Patient had no history of this previously. Patient understands the need for close follow-up with this. Patient did have cardiac work-up done today including 3 troponins. He did have a slight bump in his troponin but it was never a positive troponin. Multiple EKGs were also done, repeat EKG did show ST elevations in leads II and III without reciprocal changes which is why cardiology was consulted. Cardiology requested patient to be discharged home to follow-up outpatient. Of note patient has not had any active chest pain while in the emergency department today. - Vital Signs Vital signs: Temp Pulse Resp BP Pulse Ox 97.4 F 73 17 124/82 99 02/12/19 02:56 02/12/19 02:56 02/12/19 02:56 02/12/19 02:56 02/12/19 02:56 - Laboratory Result Diagrams: 02/11/19 18:50 02/11/19 18:50 Laboratory results interpreted by me: 02/11/19 02/11/19 02/11/19 18:50 18:50 18:50 RBC 3.75 L Hgb 11.9 L Hct 34.6 L RDW 14.6 H Dixon % (Auto) 13.1 H Seg Neutrophils % 40.6 L BUN 25 H Creatinine 1.39 H Est GFR (MDRD) Non-Af 50 L Glucose 153 H POC Glucose Calcium 11.1 H AST 68 H Total Protein 8.3 H Urine Protein 30 H Urine Nitrite POSITIVE H Ur Leukocyte Esterase LARGE H 02/12/19 01:39 RBC Hgb Hct RDW Dixon % (Auto) Seg Neutrophils % BUN Creatinine Est GFR (MDRD) Non-Af Glucose POC Glucose 127 H Calcium AST Total Protein Urine Protein Urine Nitrite Ur Leukocyte Esterase Discharge - Discharge Clinical Impression: Lung nodule, Chest pressure, Elevated troponin Urinary tract infection Qualifiers: Urinary tract infection type: site unspecified Hematuria presence: without hematuria Qualified Code(s): N39.0 - Urinary tract infection, site not specified Condition: Stable Disposition: HOME, SELF-CARE Instructions: Urinary Tract Infection ([facility]) Additional Instructions: You had elevated cardiac markers here in the emergency department today. I called and spoke with your breeding technician Dr. Maria who would like to see you in his office today at noon. In the meantime please return to the emergency department immediately if you have return of chest pain, shortness of breath, nausea, vomiting or any other symptoms. Please proceed to Dr. Robertson office at noon today. His cell phone number is [phone] if you have any problems. Incidentally we also found a urinary tract infection on your exam today. Urine culture is pending. Please start taking the antibiotics as prescribed. Complete the entire course even if your symptoms have resolved. Please follow- up with your primary care provider in 3 to 5 days regarding your urinary tract infection. Please be sure to follow-up with your primary care provider, Dr. Foy regarding the pulmonary nodule that we found on the CT report as this will need further evaluation and monitoring. Prescriptions: Ciprofloxacin HCl [Cipro 500 mg Tablet] 500 mg PO BID #14 tablet Referrals: GRADY MARIA MD [ACTIVE STAFF] - Follow up as needed
--- NOTE | 2019-02-11 23:18 | RADIOLOGY REPORT (SQ) ---
CT CHEST WITHOUT IV CONTRAST EXAM DATE: 02/11/2019 10:22 PM DIRECTOR OF COMPENSATION HISTORY: Pulmonary nodule. COMPARISON: Radiographs from earlier the same day. TECHNIQUE: CT scan of the chest without IV contrast. This exam was performed according to our departmental dose-optimization program, which includes automated exposure control, adjustment of the mA and/or kV according to patient size and/or use of iterative reconstruction technique. FINDINGS: There is a 1.4 cm lobulated nodule in the right middle lobe (series 4 image 35). No consolidation, pleural effusion, or pneumothorax. There is mild atelectasis and scarring in the lower lobes. The left thyroid lobe is enlarged. The heart size is normal without pericardial effusion. No mediastinal or axillary adenopathy. Limited evaluation for hilar adenopathy without IV contrast. Prior median sternotomy. No acute bony findings are identified. The visualized upper abdomen demonstrates tiny calcifications in the right kidney. IMPRESSION: 14.0 mm solid pulmonary nodule. Consider a non-contrast Chest CT at 3 months, a PET/CT, or tissue sampling. These guidelines do not apply to immunocompromised patients and patients with cancer. Follow up in patients with significant comorbidities as clinically warranted. For lung cancer screening, adhere to Lung-RADS guidelines. Reference: Radiology. 2017; 284(1):228-43.
[2019-02-12] MEDS ORDERED: SIMVASTATIN 40 MG TABLET PO ONE (00:23)
[2019-02-12] MEDS ORDERED: METFORMIN HCL 500 MG TABLET PO ONE (00:23)
[2019-02-12] MEDS ORDERED: AMLODIPINE BESYLATE 10 MG TABLET PO ONE (00:23)
[2019-02-12 02:57] VITALS: BP 124/82
--- NOTE | 2019-02-12 07:40 | EKG REPORT ---
SEVERITY:- ABNORMAL ECG - SINUS RHYTHM PROBABLE LEFT ATRIAL ABNORMALITY LEFT AXIS DEVIATION NONSPECIFIC T ABNORMALITIES, LATERAL LEADS : Confirmed by: Blake Jewell MD 12-Feb-2019 07:40:15
--- NOTE | 2019-02-12 07:55 | EKG REPORT ---
SEVERITY:- ABNORMAL ECG - SINUS RHYTHM ST ELEVATION, CONSIDER ACUTE ANTERIOR INJURY : Confirmed by: Blake Jewell MD 12-Feb-2019 07:54:37
--- NOTE | 2019-02-12 07:57 | EKG REPORT ---
SEVERITY:- ABNORMAL ECG - SINUS RHYTHM VENTRICULAR PREMATURE COMPLEX PROBABLE LEFT VENTRICULAR HYPERTROPHY NONSPECIFIC LATERAL ST-T CHANGES : Confirmed by: Blake Jewell MD 12-Feb-2019 07:56:09
--- NOTE | 2019-02-13 13:39 | EKG REPORT ---
SEVERITY:- ABNORMAL ECG - SINUS RHYTHM BORDERLINE LEFT AXIS DEVIATION BORDERLINE ST ELEVATION, ANTERIOR LEADS : Confirmed by: Blake Jewell MD 13-Feb-2019 13:38:23
== END 2019-02-12 02:57 | disposition home or self-care (01) ==
LOC: ER 18:03
DX: N39.0 Urinary tract infection, site not specified (principal); R91.1 Solitary pulmonary nodule; R07.9 Chest pain, unspecified; R10.9 Unspecified abdominal pain; R79.89 Other specified abnormal findings of blood chemistry; Z95.1 Presence of aortocoronary bypass graft; Z79.82 Long term (current) use of aspirin; I25.2 Old myocardial infarction
CPT/HCPCS: 93005 ×2; 99285; 36415; 82962; 85025; 80053; 81001; 84484; 71046; 71250; 93010 ×2; A9270 ×4; 87086; 87088

== ENCOUNTER → 2019-03-05 | Outpatient (CLI) | payer MEDICARE ==
--- NOTE | 2019-03-06 10:57 | RADIOLOGY REPORT (SQ) ---
EXAM DESCRIPTION: PET CT SKULL/THIGH COMPLETED DATE/TIME: 03/05/2019 8:18 pm REASON FOR STUDY: LUNG NODULE (R91.1) R91.1 SOLITARY PULMONARY NODULE COMPARISON: CT of the chest without contrast from 02/11/2019. RADIONUCLIDE AND DOSE: 9.63 mCi F18 FDG The route of agent administration: Intravenous FASTING BLOOD SUGAR: 146 mg/dl CONTRAST TYPE AND DOSE: No CT contrast given. TECHNIQUE: Blood glucose level was verified. Above dose of FDG was injected intravenously. 2-D seg mented attenuation correction images were obtained from the base of the skull to the midthighs. Nonc ontrast CT images were obtained for attenuation correction and fusion with emission images. CT image s were performed without oral or intravenous contrast and are not sensitive for parenchymal lesions. A series of overlapping emission PET images were obtained. Images reviewed and manipulated at [facility] work station by the radiologist. Images stored on PACS. LIMITATIONS: None. FINDINGS: HEAD AND NECK: No areas of abnormal metabolic activity in the soft tissues of the head and neck. CHEST: The 14 x 11 mm perifissural nodule in the right middle lobe (see image 92 of series 3) demonst rates no abnormal FDG uptake. The less than 10 mm solid peripheral and subpleural nodules scattered throughout the right upper and lower lobes including the nodules on image 90, 95, 103 and 106 are sta ble in size from 02/11/2019 and are outside the spatial resolution of PET. No areas of abnormal meta bolic activity are identified in the chest. ABDOMEN AND PELVIS: The liver demonstrates heterogeneous non focal FDG uptake with an average SUV of 3.5. There is expected physiologic activity throughout the gastrointestinal and genitourinary tracts . No areas of abnormal metabolic activity are identified in the abdomen and pelvis. PROXIMAL LOWER EXTREMITIES: No areas of abnormal metabolic activity in the soft tissues of the lower extremities. BONES: No areas of abnormal metabolic activity in the imaged axial and appendicular skeleton. ADDITIONAL CT FINDINGS: Enlarged heterogeneous thyroid gland consistent with a goiter. There are pro minent mediastinal lymph nodes that measure up to 11 mm in short axis diameter and demonstrate no abn ormal FDG uptake on PET. The patient is status post median sternotomy for CABG. The heart is enlarg ed and there is severe atherosclerotic calcification of the coronary arteries. There is no pericardi al effusion. There is no CT evidence of hepatic steatosis. The spleen is normal in size. There is no abnormality of the gallbladder or pancreas. The calcification anterior to the infrahepatic IVC on image 133 of series 3 is nonspecific. There is no hydronephrosis, nephrolithiasis, hydroureter or u reterolithiasis. There is fusiform aneurysmal dilatation of the infrarenal abdominal aorta with an A P diameter of 3.6 cm. There is no retroperitoneal adenopathy, hemorrhage or mass. The urinary bladd er is nondistended. The prostate gland is enlarged and it measures up to 5.1 cm in transverse diamet er. There is colonic diverticulosis without diverticulitis ; there is no bowel obstruction, bowel wa ll thickening or pericolonic/ perienteric inflammation. There is no mesenteric adenopathy or mesente cuca/ omental stranding. OTHER: No other findings. IMPRESSION: 1. The 14 x 11 mm perifissural nodule in the right middle lobe (image 92 of series 3) de monstrates no abnormal FDG uptake. Other less than 10 mm solid peripheral and subpleural nodules sca ttered throughout the right upper and lower lobes are outside the spatial resolution of PET. Continu ed CT follow-up of the nodules is recommended. 2. Fusiform aneurysmal dilatation of the infrarenal abdominal aorta with an AP diameter of 3.6 cm (u nchanged from 02/24/2017). TECHNICAL DOCUMENTATION: JOB ID: [id number] [employer]- All Rights Reserved Reading location - IP/workstation name: [email or web address]
== END ==
LOC: RAD 08:16
PROVIDERS: ATTEND Internal Medicine
DX: R91.1 Solitary pulmonary nodule (principal)
CPT/HCPCS: 78815; A9552

== ENCOUNTER → 2019-05-13 | Outpatient (CLI) | payer MEDICARE ==
--- NOTE | 2019-05-13 12:59 | RADIOLOGY REPORT (SQ) ---
EXAM DESCRIPTION: CT CHEST WITHOUT COMPLETED DATE/TIME: 05/13/2019 9:15 am REASON FOR STUDY: SOLITARY PULMONARY NODULE R91.1 SOLITARY PULMONARY NODULE COMPARISON: Chest CT 02/11/2019 PET-CT 03/05/2019 TECHNIQUE: CT scan performed of the chest without intravenous contrast. Images reviewed with lung, soft tissue and bone windows. Reconstructed coronal and sagittal MPR images reviewed. All images st ored on PACS. All CT scanners at this facility use dose modulation, iterative reconstruction, and/or weight based d osing when appropriate to reduce radiation dose to as low as reasonably achievable (ALARA). [facility]: Dose Right [facility]: CareDose [facility]: Dose Right [facility]: Teradose 4D [facility]: [employer] RADIATION DOSE: CT Rad equipment meets quality standard of care and radiation dose reduction techniq ues were employed. CTDIvol: 17.4 mGy. DLP: 772 mGy-cm. mGy. LIMITATIONS: No technical limitations. FINDINGS: LUNGS AND PLEURA: Stable 1.4 cm nodule in the right middle lobe. Stable 3 mm nodule in th e right lower lobe. There is mild chronic pulmonary fibrosis in the right base medially. HILAR AND MEDIASTINAL STRUCTURES: There are some nonspecific mediastinal nodes. HEART AND VASCULAR STRUCTURES: No aneurysm. No pericardial effusion. Prior CABG. UPPER ABDOMEN: No significant findings. Limited exam. THYROID AND OTHER SOFT TISSUES: Once again the thyroid gland is enlarged and extends into the upper m ediastinum. BONES: No significant finding. HARDWARE: Sternotomy wires. OTHER: No other significant findings. IMPRESSION: Stable pulmonary nodules. Mild chronic pulmonary fibrosis. Goiter. COMMENT: [place]NER CRITERIA FOR FOLLOW-UP OF PULMONARY NODULES Incidentally detected new nodules in persons 35 or older. HIGH RISK: History of smoking or other known risk factors. >8 mm single solid nodule: LOW and HIGH RISK: consider CT, PET/CT or biopsy at 3 mo. TECHNICAL DOCUMENTATION: JOB ID: [id number] Quality ID # [id number]: Final reports with documentation of one or more dose reduction techniques (e.g., Au tomated exposure control, adjustment of the mA and/or kV according to patient size, use of iterative reconstruction technique) 2010 [employer]- All Rights Reserved Reading location - IP/workstation name: [email or web address]
== END ==
LOC: RAD 09:10
PROVIDERS: ATTEND Internal Medicine
DX: R91.1 Solitary pulmonary nodule (principal)
CPT/HCPCS: 71250

== ENCOUNTER → 2019-09-18 | Outpatient (CLI) | payer MEDICARE ==
[2019-09-18 10:13] LABS: ABSOLUTE EOSINOPHILS # (AUTO) 0.2 10^3/uL (0.0-0.6); ABSOLUTE LYMPHOCYTES (AUTO) 1.3 10^3/uL (0.5-4.7); ABSOLUTE MONOCYTES (AUTO) 0.4 10^3/uL (0.1-1.4); ABSOLUTE NEUT (AUTO) 1.9 10^3/uL (1.7-8.2); BASOPHILS % (AUTO) 0.3 % (0-2); HEMATOCRIT 31.4 % (37.9-51.0); HEMOGLOBIN 10.2 g/dL (13.5-17.0); LYMPHOCYTES % (AUTO) 33.8 % (13-45); MEAN CORPUSCULAR HEMOGLOBIN 27.5 pg (27.0-33.4); MEAN CORPUSCULAR HGB CONC 32.6 g/dL (32.0-36.0); MEAN CORPUSCULAR VOLUME 84 fl (80-97); MONOCYTES % (AUTO) 11.6 % (3-13); PLATELET COUNT 212 10^3/uL (150-450); RED BLOOD COUNT 3.72 10^6/uL (4.35-5.55); RED CELL DISTRIBUTION WIDTH 16.5 % (11.5-14.0); SEGMENTED NEUTROPHILS % (AUTO) 49.3 % (42-78); TOTAL CELLS COUNTED % (AUTO) 100 %; WHITE BLOOD COUNT 3.8 10^3/uL (4.0-10.5)
[2019-09-18 10:33] LABS: ALBUMIN 4.4 g/dL (3.5-5.0); ALKALINE PHOSPHATASE 60 U/L (38-126); ANION GAP 9 (5-19); ASPARTATE AMINO TRANSFERASE 53 U/L (17-59); BILIRUBIN,TOTAL 0.6 mg/dL (0.2-1.3); BLOOD UREA NITROGEN 18 mg/dL (7-20); CALCIUM 11.2 mg/dL (8.4-10.2); CARBON DIOXIDE 24 mmol/L (22-30); CHLORIDE 108 mmol/L (98-107); CHOLESTEROL 129.14 mg/dL (0-200); GLUCOSE 122 mg/dL (75-110); POTASSIUM 4.1 mmol/L (3.6-5.0); TOTAL PROTEIN 7.8 g/dL (6.3-8.2); TRIGLYCERIDES 203 mg/dL (<150)
[2019-09-18 10:44] LABS: DIRECT LDL 62 mg/dL (<100)
[2019-09-18 10:48] LABS: VLDL CHOLESTEROL 40.6 mg/dL (10-31)
--- NOTE | 2019-09-18 13:33 | RADIOLOGY REPORT (SQ) ---
EXAM DESCRIPTION: U/S ABDOMEN LTD W/DOPPLER IMAGES COMPLETED DATE/TIME: 09/18/2019 11:00 am REASON FOR STUDY: CALCULUS OF GALLBLADDER W/O CHOLECYSTITIS W/O OBSTRUCTION (K80.20) K80.20 CALCULU S OF GALLBLADDER W/O CHOLECYSTITIS W/O OBSTRUC E11.9 TYPE 2 DIABETES MELLITUS WITHOUT COMPLICATIONS COMPARISON: 08/03/2018 TECHNIQUE: Dynamic and static grayscale images acquired of the abdomen and recorded on PACS. Additio nal selected color Doppler and spectral images recorded. LIMITATIONS: None. FINDINGS: PANCREAS: No masses. Visualized pancreatic duct normal caliber. LIVER: Fatty liver. The liver measures 18.0 cm in length. Mild hepatomegaly. LIVER VASCULATURE: Normal directional flow of the main portal vein and hepatic veins. GALLBLADDER: Multiple gallstones were identified on the prior examination. These findings are not v isualized on the current study. The gallbladder does appeared to be somewhat contracted. No pericho lecystic fluid. ULTRASOUND-DETECTED GUERRERO'S SIGN: Negative. INTRAHEPATIC DUCTS AND COMMON DUCT: CBD measures 3.9 mm in diameter, normal. The intrahepatic ducts normal caliber. No filling defects. INFERIOR VENA CAVA: Normal flow. AORTA: As on the previous examination, and infrarenal abdominal aortic aneurysm. On the prior exami nation it measured 3.6 cm in greatest AP diameter, compared to 4.0 cm on the current study. RIGHT KIDNEY: The right kidney measures 10.7 cm in length, normal size. Normal echotexture. No darlene id or suspicious masses. No hydronephrosis. No calcifications. PERITONEAL AND RIGHT PLEURAL SPACE: No ascites or effusions. OTHER: No other significant findings. IMPRESSION: 1. The gallbladder is contracted in appearance. On the prior study, multiple gallstone s were identified. These findings are not present on the prior study. Correlation suggested and rep eat ultrasound with the patient NPO. 2. Fatty liver, unchanged finding. 3. As on the prior examination, infrarenal abdominal aortic aneurysm. It measures approximately 4.0 cm in AP diameter on the current study, compared to 3.6 cm on the prior study. TECHNICAL DOCUMENTATION: JOB ID: [id number] 2010 [facility]- All Rights Reserved Reading location - IP/workstation name: [email or web address]
== END ==
LOC: RAD 09:12
PROVIDERS: ATTEND Internal Medicine
DX: K80.20 Calculus of gallbladder without cholecystitis without obstruction (principal); E11.9 Type 2 diabetes mellitus without complications; I10 Essential (primary) hypertension; I25.10 Atherosclerotic heart disease of native coronary artery without angina pectoris; E78.5 Hyperlipidemia, unspecified
CPT/HCPCS: 36415; 76705; 80053; 80061; 83036; 85025; 93976

== ENCOUNTER → 2019-09-19 | Outpatient (CLI) | payer MEDICARE | LOC: OD 16:22 | PROVIDERS: ATTEND Internal Medicine | DX: E83.52 Hypercalcemia (principal) | CPT/HCPCS: 36415; 83970 ==

== ENCOUNTER → 2020-04-03 | Outpatient (CLI) | payer MEDICARE ==
[2020-04-03 12:03] LABS: ABSOLUTE EOSINOPHILS # (AUTO) 0.3 10^3/uL (0.0-0.6); ABSOLUTE LYMPHOCYTES (AUTO) 1.8 10^3/uL (0.5-4.7); ABSOLUTE MONOCYTES (AUTO) 0.6 10^3/uL (0.1-1.4); ABSOLUTE NEUT (AUTO) 2.6 10^3/uL (1.7-8.2); BASOPHILS % (AUTO) 0.3 % (0-2); EOSINOPHILS % (AUTO) 5.2 % (0-6); HEMATOCRIT 26.9 % (37.9-51.0); HEMOGLOBIN 8.8 g/dL (13.5-17.0); LYMPHOCYTES % (AUTO) 34.4 % (13-45); MEAN CORPUSCULAR HEMOGLOBIN 29.6 pg (27.0-33.4); MEAN CORPUSCULAR HGB CONC 32.8 g/dL (32.0-36.0); MEAN CORPUSCULAR VOLUME 90 fl (80-97); MONOCYTES % (AUTO) 11.4 % (3-13); PLATELET COUNT 235 10^3/uL (150-450); RED BLOOD COUNT 2.98 10^6/uL (4.35-5.55); RED CELL DISTRIBUTION WIDTH 28.9 % (11.5-14.0); SEGMENTED NEUTROPHILS % (AUTO) 48.7 % (42-78); TOTAL CELLS COUNTED % (AUTO) 100 %; WHITE BLOOD COUNT 5.3 10^3/uL (4.0-10.5)
[2020-04-03 12:23] LABS: ALBUMIN 4.1 g/dL (3.5-5.0); ALKALINE PHOSPHATASE 67 U/L (38-126); ANION GAP 10 (5-19); ASPARTATE AMINO TRANSFERASE 51 U/L (17-59); BILIRUBIN,DIRECT 0.2 mg/dL (0.0-0.4); BILIRUBIN,TOTAL 0.6 mg/dL (0.2-1.3); BLOOD UREA NITROGEN 18 mg/dL (7-20); CALCIUM 10.9 mg/dL (8.4-10.2); CARBON DIOXIDE 23 mmol/L (22-30); CHLORIDE 106 mmol/L (98-107); GLUCOSE 124 mg/dL (75-110); POTASSIUM 4.1 mmol/L (3.6-5.0); TOTAL PROTEIN 7.2 g/dL (6.3-8.2)
[2020-04-03 12:25] LABS: C-REACTIVE PROTEIN < 5.0 mg/L (<10.0)
[2020-04-03 12:28] LABS: ANISOCYTOSIS 4+
[2020-04-03 12:29] LABS: OVALOCYTES SLIGHT; POIKILOCYTOSIS 1+; POLYCHROMASIA SLIGHT; TEAR DROP CELLS SLIGHT
[2020-04-03 12:30] LABS: PLATELET COMMENT ADEQUATE
[2020-04-03 12:37] LABS: ERYTHROCYTE SEDIMENTATION RATE 41 mm/hr (0-20)
== END ==
LOC: WC 10:53
PROVIDERS: ATTEND Nurse Practitioner Family
DX: T81.31XA Disruption of external operation (surgical) wound, not elsewhere classified, initial encounter (principal); E11.621 Type 2 diabetes mellitus with foot ulcer
CPT/HCPCS: 36415; 80053; 83036; 85025; 85652; 86140

== ENCOUNTER → 2020-04-08 | Outpatient (CLI) | payer MEDICARE ==
--- NOTE | 2020-04-08 12:18 | RADIOLOGY REPORT (SQ) ---
EXAM DESCRIPTION: OS CALCIS/HEEL LEFT IMAGES COMPLETED DATE/TIME: 04/08/2020 9:54 am REASON FOR STUDY: (T81.31XA)DISRUPTION OF EXTERNAL OPERATION (SURGICAL) WOUND, NEC, INIT T81.31XA D ISRUPTION OF EXTERNAL OPERATION (SURGICAL) WOUND, COMPARISON: None. NUMBER OF VIEWS: Two views. TECHNIQUE: Plantar and lateral images acquired of the left calcaneous. LIMITATIONS: None. FINDINGS: MINERALIZATION: Normal. BONES: No fracture or dislocation. No evidence of osteomyelitis. JOINTS: No effusions. SOFT TISSUES: Multiple surgical clips. OTHER: No other significant finding. IMPRESSION: NEGATIVE STUDY OF THE LEFT CALCANEOUS. NO RADIOGRAPHIC EVIDENCE OF ACUTE INJURY. TECHNICAL DOCUMENTATION: JOB ID: [id number] 2010 [employer]- All Rights Reserved Reading location - IP/workstation name: [email or web address]
== END ==
LOC: RAD 09:27
PROVIDERS: ATTEND Nurse Practitioner Family
DX: T81.31XA Disruption of external operation (surgical) wound, not elsewhere classified, initial encounter (principal)